=== PATIENT | female | born 1980 | race Two or more races ===

== ENCOUNTER 2023-01-14 22:05 | Inpatient (IN) | payer MEDICAID ==
[~2023-01-14] VITALS: Ht 157.5 cm; Wt 63.5 kg
--- NOTE | 2023-01-15 00:07 | NUR ---
Dr. Carroll at bedside for MSE.
[2023-01-15 00:27] LABS: *BILIRUBIN,URIN NEGATIVE (NEGATIVE); *BLOOD, URINE 2+ (NEGATIVE); *CLARITY,URINE CLEAR (CLEAR); *COLOR,URINE YELLOW (YELLOW); *KETONES,URINE NEGATIVE (NEGATIVE); *UROBILINOGEN,URINE 0.2 E.U./dl (NORMAL); LEUKOCYTE ESTERASE ,URINE NEGATIVE (NEGATIVE); NITRITE, URINE NEGATIVE (NEGATIVE); UGLUCOSE NEGATIVE (NEGATIVE)
[2023-01-15 00:37] LABS: HEMATOCRIT 39.3 % (31.2-41.9); MEAN CORPUSCULAR VOLUME 89.5 fL (75.5-95.3); PLATELET COUNT (AUTO) 89 K/uL (179-408)
[2023-01-15 00:43] LABS: CREATININE 0.6 mg/dL (0.6-1.3); POTASSIUM 3.5 mmol/L (3.5-5.1)
[2023-01-15 00:49] LABS: BILIRUBIN,DIRECT 0.1 mg/dL (0.0-0.2); BILIRUBIN,TOTAL 0.1 mg/dL (0.2-1.0); TOTAL PROTEIN, SERUM 8.1 g/dL (6.4-8.2)
[2023-01-15 01:06] LABS: BACTERIA,URINE NONE SEEN /HPF (NONE SEEN); SQUAMOUS EPITHELIAL CELL,UR FEW /HPF (NONE SEEN); WBC,URINE NONE SEEN /HPF (0-3)
[2023-01-15 01:20] LABS: LYMPHOCYTES % (MANUAL) 29 % (20-40); MONOCYTES % (MANUAL) 3 % (2-10); NEUTROPHILS % (MANUAL) 68 % (42-75)
--- NOTE | 2023-01-15 01:23 | NUR ---
Ultrasound at bedside.
--- NOTE | 2023-01-15 01:44 | NUR ---
[employer] Handler chapperoned by Joelle DYER.
--- NOTE | 2023-01-15 01:50 | NUR ---
Dr Carroll spoke with Meghana Elliott for OBGYN consult.
--- NOTE | 2023-01-15 01:55 | NUR ---
Dr. Carroll on panel call with Radha Espinosa NP.
[2023-01-15] MEDS ORDERED: REMEDY ESSENTIAL ZINC PASTE 113 GM TP PRN (02:00)
[2023-01-15] MEDS ORDERED: MAGNESIUM HYDROXIDE 30 ML LIQUID UDC PO PRN (02:00)
[2023-01-15] MEDS ORDERED: ACETAMINOPHEN 325 MG TABLET PO PRN (02:00)
[2023-01-15] MEDS ORDERED: IV NS 1000 ML 1,000 ML IV PRN (02:00)
[2023-01-15] MEDS ORDERED: ONDANSETRON 4 MG/2 ML VIAL IV PRN (02:00)
--- NOTE | 2023-01-15 02:15 | NUR ---
Consent signed and explained to patient using Claim Manager.
--- NOTE | 2023-01-15 02:22 | NUR ---
Report given to Antonia Soto RN OR.
[2023-01-15] MEDS ORDERED: CEFAZOLIN 1 G VIAL ONE (03:00)
[2023-01-15] MEDS ORDERED: SUCCINYLCHOLINE CHLORIDE 200 MG/10 ML VIAL ONE (03:00)
[2023-01-15] MEDS ORDERED: DEXAMETHASONE SOD PHOSPHATE 4 MG INJ ONE (03:00)
[2023-01-15] MEDS ORDERED: PROPOFOL 200 MG/20 ML BOTTLE ONE (03:00)
[2023-01-15] MEDS ORDERED: ONDANSETRON 4 MG/2 ML VIAL ONE (03:00)
[2023-01-15] MEDS ORDERED: FENTANYL CITRATE 100 MCG/2 ML AMPUL ONE (03:14)
[2023-01-15] MEDS ORDERED: MIDAZOLAM HCL 2 MG/2 ML VIAL ONE (03:15)
[2023-01-15] MEDS ORDERED: OXYTOCIN 10 UNIT/ML VIAL ONE ×2 (03:52→03:53)
[2023-01-15 06:26] LABS: HEMATOCRIT 36.6 % (31.2-41.9); MEAN CORPUSCULAR VOLUME 90.6 fL (75.5-95.3); PLATELET COUNT (AUTO) 86 K/uL (179-408)
[2023-01-15 06:51] VITALS: BP 110/68
--- NOTE | 2023-01-15 07:52 | NUR ---
Patient admitted via OR S/P D7C for vaginal bleeding , gestation 8 weeks.Pt was bleeding for several days. Pt stable Vaginal bleeding Minimal Pitocin drip in fusing Lr infusing at 125/ hr. Site satisfactor. Pt Broussard/C when tolerating PO and Ambulatory
[2023-01-15] MEDS ORDERED: IV LACTATED RINGERS SOLUTION 1,000 ML IV PRN (08:15)
--- NOTE | 2023-01-15 09:00 | NUR ---
AWAKENED FOR BREAKFAST. VERY HUNGRY. VOIDING QS. NO C/O DISCOMFORT AT THIS TIME.
[2023-01-15] MEDS ORDERED: HYDROCODONE/APAP 5-325MG TABLET PO PRN ×2 (10:15)
[2023-01-15 12:00] VITALS: BP 106/63
--- NOTE | 2023-01-15 13:00 | NUR ---
SEEN BY STEFFEN CLAROS. INSTRUCTED THAT SHE WILL BE DISCHARGED TODAY, AND FOLLOW UP WITH DR. SALINAS CARRILLO IN ONE WEEK. PRINTOUT OF DR. NIÑO'S OFFICE NUMBER AND AND LOCATION GIVEN TO PATIENT.
[2023-01-15] MEDS ORDERED: CEPH500T PO (13:45)
[2023-01-15] MEDS ORDERED: HYDR-3972 PO (13:45)
--- NOTE | 2023-01-15 15:00 | NUR ---
SALINE LOCK DC'D. ANGIOCATH REMOVED INTACT. PREPARED FOR DISCHARGE. INSTRUCTIONS GIVEN TO - GURDEEP AND PATIENT.
--- NOTE | 2023-01-15 15:50 | NUR ---
DISCHARGED VIA W/C, ACCOMPANIED BY CHASE JACOBSEN TO IN W/C. IN GOOD SPIRITS.
[2023-01-15 16:06] VITALS: BP 110/67
== END 2023-01-15 15:15 | disposition home or self-care (01) | DRG 560 ==
LOC: ER 22:05 → MEDSURG3 01-15 02:40
PROVIDERS: ADMIT Nurse Practitioner Acute Care; ATTEND Nurse Practitioner Acute Care
PROC: 10D07Z8 Extraction of Products of Conception, Other, Via Natural or Artificial Opening (ICD-10-PCS; principal; 2023-01-15)
DX: O36.4XX0 Maternal care for intrauterine death, not applicable or unspecified (principal); Z37.9 Outcome of delivery, unspecified; D69.6 Thrombocytopenia, unspecified; O08.1 Delayed or excessive hemorrhage following ectopic and molar pregnancy; O99.111 Other diseases of the blood and blood-forming organs and certain disorders involving the immune mechanism complicating pregnancy, first trimester; O99.12 Other diseases of the blood and blood-forming organs and certain disorders involving the immune mechanism complicating childbirth; D72.829 Elevated white blood cell count, unspecified; Z20.822 Contact with and (suspected) exposure to COVID-19; Z3A.08 8 weeks gestation of pregnancy
CPT/HCPCS: 36415; 70030-TC; 76856; 85025; 86850; 86900; 86901; G0378; J0330; J0690; J1100; J2250; J2405; J2590; J3010; J3490

== ENCOUNTER 2023-04-20 22:41 | Emergency (ER) | payer MEDICAID ==
[~2023-04-20] VITALS: Ht 149.9 cm; Wt 63.5 kg
[~2023-04-20 22:41] MED LIST: CEPH500T PO; HYDR-3972 PO
[2023-04-20] MEDS ORDERED: ONDANSETRON ODT 4 MG TAB.RAPDIS ONE (23:25)
[2023-04-20] MEDS ORDERED: HYDROMORPHONE 1 MG/1 ML DISP.SYRIN ONE (23:26)
[2023-04-20] MEDS ORDERED: HYDROMORPHONE 1 MG/1 ML DISP.SYRIN IM ONE (23:30)
[2023-04-20] MEDS ORDERED: ONDANSETRON ODT 4 MG TAB.RAPDIS SL ONE (23:30)
[2023-04-20] MEDS ORDERED: HYDR-3980 PO ×2 (23:51→23:53)
[2023-04-20] MEDS ORDERED: ONDA4TAB5 PO ×2 (23:51→23:53)
[2023-04-21 00:07] VITALS: BP 135/93; O2SAT 97
== END 2023-04-21 00:08 | disposition home or self-care (01) ==
LOC: ER 22:41
DX: S62.613A Displaced fracture of proximal phalanx of left middle finger, initial encounter for closed fracture (principal); Z90.49 Acquired absence of other specified parts of digestive tract; Z79.899 Other long term (current) drug therapy; W20.8XXA Other cause of strike by thrown, projected or falling object, initial encounter; Y93.89 Activity, other specified; Y92.89 Other specified places as the place of occurrence of the external cause; Y99.8 Other external cause status
CPT/HCPCS: 29130; 73130; 96372; 99283; J1170; A4663; Q0162

== ENCOUNTER 2023-05-06 19:20 | Inpatient (IN) | payer MEDICAID ==
[~2023-05-06] VITALS: Ht 152 cm; Wt 71.7 kg
[~2023-05-06 19:20] MED LIST changes: +HYDR-3980 PO; +ONDA4TAB5 PO
[2023-05-06] MEDS ORDERED: ONDANSETRON 4 MG/2 ML VIAL IV ONE (20:00)
[2023-05-06] MEDS ORDERED: FAMOTIDINE. 20 MG/2 ML VIAL IV ONE (20:00)
[2023-05-06] MEDS ORDERED: IV NORMAL SALINE 1000 ML BAG IV ONE (20:00)
[2023-05-06 20:22] LABS: BASOPHILS # (AUTO) 0.1 K/UL (0.0-0.2); BASOPHILS % (AUTO) 0.4 % (0.0-2.0); EOSINOPHILS # (AUTO) 0.1 K/uL (0.0-0.7); EOSINOPHILS % (AUTO) 0.4 % (0.0-7.0); HEMOGLOBIN 13.8 g/dL (10.9-14.3); LYMPHOCYTES % (AUTO) 18.2 % (20.5-51.5); MEAN CORPUSCULAR HEMOGLOBIN 29.7 uug (24.7-32.8); MEAN CORPUSCULAR HGB CONC 33 g/dL (32.3-35.6); MEAN CORPUSCULAR VOLUME 90.5 fL (75.5-95.3); MONOCYTES % (AUTO) 6.1 % (0.0-11.0); NEUTROPHILS # (AUTO) 12.2 K/uL (1.8-8.9); NEUTROPHILS % (AUTO) 74.9 % (38.5-71.5); PLATELET COUNT (AUTO) 116 K/uL (179-408); RED BLOOD CELL COUNT(AUTO) 4.64 MIL/uL (3.63-4.92); RED CELL DISTRIBUTION WIDTH 13.3 % (12.3-17.7); WHITE BLOOD COUNT (AUTO) 16.3 K/uL (3.8-11.8)
[2023-05-06 20:23] LABS: DIFFERENTIAL COMMENT 1
[2023-05-06 20:42] LABS: BILIRUBIN,DIRECT 0.1 mg/dL (0.0-0.2); BILIRUBIN,TOTAL 0.4 mg/dL (0.2-1.0); CREATININE 0.7 mg/dL (0.6-1.3); POTASSIUM 4.1 mmol/L (3.5-5.1); TOTAL PROTEIN, SERUM 8.2 g/dL (6.4-8.2)
[2023-05-06] MEDS ORDERED: LIDOCAINE VISCUS 2% 15 ML UDC MM ONE (22:30)
[2023-05-06] MEDS ORDERED: MAG HYDROX/AL HYDROX/SIMETH 30 ML LIQUID UDC PO ONE (22:30)
[2023-05-06] MEDS ORDERED: MAG HYDROX/AL HYDROX/SIMETH 30 ML LIQUID UDC ONE (22:54)
[2023-05-06 23:00] LABS: *BILIRUBIN,URIN NEGATIVE (NEGATIVE); *BLOOD, URINE 2+ (NEGATIVE); *CLARITY,URINE CLEAR (CLEAR); *COLOR,URINE YELLOW (YELLOW); *KETONES,URINE NEGATIVE (NEGATIVE); *PROTEIN,URINE TRACE (NEGATIVE); *UROBILINOGEN,URINE 0.2 E.U./dl (NORMAL); LEUKOCYTE ESTERASE ,URINE NEGATIVE (NEGATIVE); NITRITE, URINE NEGATIVE (NEGATIVE); PH,URINE 6.5 (5.0-8.0); UGLUCOSE NEGATIVE (NEGATIVE)
[2023-05-06 23:52] LABS: *URINE HCG, QUAL NEGATIVE (NEGATIVE)
[2023-05-07 00:25] LABS: WBC,URINE 0-3 /HPF (0-3)
[2023-05-07 00:26] LABS: BACTERIA,URINE FEW /HPF (NONE SEEN); SQUAMOUS EPITHELIAL CELL,UR MODERATE /HPF (NONE SEEN)
[2023-05-07] MEDS ORDERED: KETOROLAC TROMETHAMINE 15 MG INJ IVP ONE (00:30)
[2023-05-07] MEDS ORDERED: PANTOPRAZOLE SODIUM IV 40 MG in IV DEXTROSE 5% 100 ML IV ONE (00:30)
[2023-05-07] MEDS ORDERED: KETOROLAC TROMETHAMINE 15 MG INJ ONE (00:34)
[2023-05-07] MEDS ORDERED: PANTOPRAZOLE SODIUM 40 MG VIAL ONE (00:34)
[2023-05-07] MEDS ORDERED: ONDANSETRON 4 MG/2 ML VIAL IV PRN (02:00)
[2023-05-07] MEDS ORDERED: MAGNESIUM HYDROXIDE 30 ML LIQUID UDC PO PRN (02:00)
[2023-05-07] MEDS ORDERED: ACETAMINOPHEN 325 MG TABLET PO PRN (02:00)
[2023-05-07 02:50] VITALS: BP 132/75; TEMP 98.6; O2SAT 99
[2023-05-07 04:00] VITALS: BP 105/55; TEMP 98.3; O2SAT 97
[2023-05-07] MEDS: IV NS 1000 ML 1,000 ML IV PRN ×2 (07:06→23:08)
[2023-05-07] MEDS: ENOXAPARIN SODIUM 40 MG/0.4 ML DISP.SYRIN SQ SCH (08:45)
[2023-05-07] MEDS: PANTOPRAZOLE SODIUM 40 MG VIAL IV SCH (08:45)
[2023-05-07] MEDS ORDERED: MORPHINE SULFATE 4 MG/1 ML DISP.SYRIN IV PRN (10:30)
[2023-05-07 12:00] VITALS: BP 117/76; TEMP 99; O2SAT 97
[2023-05-07 16:00] VITALS: BP 102/59; TEMP 97.7; O2SAT 97
[2023-05-07] MEDS: PIPERACILLIN SODIUM/TAZOBACTAM 3.375 G in IV DEXTROSE 5% 100 ML IV SCH (17:30)
[2023-05-07] MEDS ORDERED: PIPERACILLIN SODIUM/TAZOBACTAM 3.375 G in IV DEXTROSE 5% 50 ML IV SCH (18:00)
[2023-05-07] MEDS ORDERED: PIPERACILLIN SODIUM/TAZOBACTAM 3.375 G in IV DEXTROSE 5% 100 ML IV SCH (22:00)
[2023-05-07 23:38] VITALS: BP 106/57; TEMP 98.2; O2SAT 99
[2023-05-08] MEDS: PIPERACILLIN SODIUM/TAZOBACTAM 3.375 G in IV DEXTROSE 5% 100 ML IV SCH ×3 (00:10→16:06)
[2023-05-08 04:27] VITALS: BP 107/56; TEMP 98.2; O2SAT 99
[2023-05-08 06:53] LABS: BASOPHILS % (AUTO) 0.3 % (0.0-2.0); EOSINOPHILS # (AUTO) 0.2 K/uL (0.0-0.7); HEMATOCRIT 36.4 % (31.2-41.9); HEMOGLOBIN 12.5 g/dL (10.9-14.3); LYMPHOCYTES % (AUTO) 29.1 % (20.5-51.5); MEAN CORPUSCULAR HEMOGLOBIN 30.8 uug (24.7-32.8); MEAN CORPUSCULAR HGB CONC 34 g/dL (32.3-35.6); MEAN CORPUSCULAR VOLUME 90.1 fL (75.5-95.3); MONOCYTES # (AUTO) 0.8 K/uL (0.1-1.30); MONOCYTES % (AUTO) 7.5 % (0.0-11.0); NEUTROPHILS # (AUTO) 6.3 K/uL (1.8-8.9); NEUTROPHILS % (AUTO) 61.1 % (38.5-71.5); PLATELET COUNT (AUTO) 112 K/uL (179-408); RED BLOOD CELL COUNT(AUTO) 4.04 MIL/uL (3.63-4.92); RED CELL DISTRIBUTION WIDTH 13.3 % (12.3-17.7); WHITE BLOOD COUNT (AUTO) 10.3 K/uL (3.8-11.8)
[2023-05-08 07:08] LABS: DIFFERENTIAL COMMENT 1
[2023-05-08 07:19] LABS: CALCIUM 7.8 mg/dL (8.5-10.1); CREATININE 0.6 mg/dL (0.6-1.3); PHOSPHOROUS 2.6 mg/dL (2.5-4.9); POTASSIUM 3.5 mmol/L (3.5-5.1)
[2023-05-08] MEDS: PANTOPRAZOLE SODIUM 40 MG VIAL IV SCH (08:16)
[2023-05-08] MEDS: ENOXAPARIN SODIUM 40 MG/0.4 ML DISP.SYRIN SQ SCH (08:27)
[2023-05-08 11:49] VITALS: BP 107/55; TEMP 98.4; O2SAT 95
[2023-05-08] MEDS ORDERED: AMOX-430 PO (13:30)
[2023-05-08] MEDS ORDERED: HYDR-3972 PO (13:30)
[2023-05-08 16:00] VITALS: BP 122/75; TEMP 98.1; O2SAT 97
[2023-05-09] MEDS ORDERED: PANTOPRAZOLE SODIUM 40 MG TABLET.DR PO SCH (07:00)
== END 2023-05-08 18:40 | disposition home or self-care (01) | DRG 244 ==
LOC: ER 19:32 → MEDSURG3 05-07 02:25
PROVIDERS: ADMIT Nurse Practitioner Acute Care; ATTEND Nurse Practitioner Acute Care
DX: K57.32 Diverticulitis of large intestine without perforation or abscess without bleeding (principal); K76.0 Fatty (change of) liver, not elsewhere classified; E78.5 Hyperlipidemia, unspecified; Z90.49 Acquired absence of other specified parts of digestive tract; Z98.891 History of uterine scar from previous surgery; Z86.19 Personal history of other infectious and parasitic diseases; R79.89 Other specified abnormal findings of blood chemistry
CPT/HCPCS: 36415; 74018; 76705; 83690; 83735; 84100; 84703; 85025; 85730; 86677; A4663; C9113; G0378; J1650; J1885; J2270; J2405; J2543; J3490; J7040

== ENCOUNTER 2023-07-26 17:11 | Emergency (ER) | payer MEDICAID ==
[~2023-07-26] VITALS: Ht 154.9 cm; Wt 74.8 kg
[~2023-07-26 17:11] MED LIST changes: +AMOX-430 PO; -CEPH500T PO; -HYDR-3980 PO; -ONDA4TAB5 PO
[2023-07-26 18:16] LABS: BASOPHILS # (AUTO) 0.3 K/UL (0.0-0.2); EOSINOPHILS % (AUTO) 0.2 % (0.0-7.0); HEMATOCRIT 41.3 % (31.2-41.9); HEMOGLOBIN 13.7 g/dL (10.9-14.3); LYMPHOCYTES # (AUTO) 2.5 K/uL (0.8-4.8); LYMPHOCYTES % (AUTO) 18.8 % (20.5-51.5); MEAN CORPUSCULAR HEMOGLOBIN 30.1 uug (24.7-32.8); MEAN CORPUSCULAR HGB CONC 33 g/dL (32.3-35.6); MEAN CORPUSCULAR VOLUME 90.6 fL (75.5-95.3); MONOCYTES # (AUTO) 0.8 K/uL (0.1-1.30); MONOCYTES % (AUTO) 6.1 % (0.0-11.0); NEUTROPHILS # (AUTO) 9.7 K/uL (1.8-8.9); NEUTROPHILS % (AUTO) 72.9 % (38.5-71.5); PLATELET COUNT (AUTO) 117 K/uL (179-408); RED BLOOD CELL COUNT(AUTO) 4.56 MIL/uL (3.63-4.92); RED CELL DISTRIBUTION WIDTH 13.5 % (12.3-17.7); WHITE BLOOD COUNT (AUTO) 13.2 K/uL (3.8-11.8)
[2023-07-26 18:18] LABS: *BILIRUBIN,URIN NEGATIVE (NEGATIVE); *BLOOD, URINE 2+ (NEGATIVE); *CLARITY,URINE CLEAR (CLEAR); *COLOR,URINE YELLOW (YELLOW); *KETONES,URINE NEGATIVE (NEGATIVE); *PROTEIN,URINE 2+ (NEGATIVE); *UROBILINOGEN,URINE 0.2 E.U./dl (NORMAL); LEUKOCYTE ESTERASE ,URINE NEGATIVE (NEGATIVE); NITRITE, URINE NEGATIVE (NEGATIVE); UGLUCOSE NEGATIVE (NEGATIVE)
[2023-07-26 18:23] LABS: BACTERIA,URINE FEW /HPF (NONE SEEN); RBC,URINE 20-50 /HPF (0-3); SQUAMOUS EPITHELIAL CELL,UR FEW /HPF (NONE SEEN); WBC,URINE 0-3 /HPF (0-3)
[2023-07-26 18:24] LABS: CALCIUM 9.3 mg/dL (8.5-10.1); CARBON DIOXIDE 27 mmol/L (21-32); CHLORIDE 99 mmol/L (98-107); CREATININE 0.6 mg/dL (0.6-1.3); DIFFERENTIAL COMMENT 1; GLUCOSE 97 mg/dL (74-106); POTASSIUM 3.9 mmol/L (3.5-5.1); SODIUM SERUM 136 mmol/L (136-145); UREA NITROGEN, BLOOD 10 mg/dL (7-18)
[2023-07-26 18:24] LABS: *URINE HCG, QUAL POSITIVE (NEGATIVE)
[2023-07-26] MEDS ORDERED: AMOX-427 PO (18:29)
[2023-07-26 18:30] LABS: ALBUMIN 3.7 g/dL (3.4-5.0); ALKALINE PHOSPHATASE 84 U/L (50-136); ASPARTATE AMINOTRANSFERASE 11 U/L (15-37); BILIRUBIN,TOTAL 0.3 mg/dL (0.2-1.0); LIPASE 42 U/L (16-77); TOTAL PROTEIN, SERUM 8.1 g/dL (6.4-8.2)
[2023-07-26 18:33] LABS: BILIRUBIN,DIRECT < 0.1 mg/dL (0.0-0.2)
[2023-07-26 18:41] LABS: ALANINE AMINOTRANSFERASE < 6 U/L (14-59)
[2023-07-26] MEDS ORDERED: CHOL500062 PO (21:51)
[2023-07-26] MEDS ORDERED: ACET1TAB23 PO (21:51)
[2023-07-26 22:21] VITALS: BP 121/84; TEMP 98.5; O2SAT 99
== END 2023-07-26 22:21 | disposition home or self-care (01) ==
LOC: ER 17:15
DX: O26.891 Other specified pregnancy related conditions, first trimester (principal); R10.2 Pelvic and perineal pain; R10.30 Lower abdominal pain, unspecified; Z90.49 Acquired absence of other specified parts of digestive tract; Z79.2 Long term (current) use of antibiotics; Z79.899 Other long term (current) drug therapy; Z3A.01 Less than 8 weeks gestation of pregnancy
CPT/HCPCS: 36415; 76700; 76856; 83690; 84703; 85025; A4606; A4663

== ENCOUNTER 2024-01-28 20:24 | Emergency (ER) | payer MEDICAID, OTHER ==
[~2024-01-28] VITALS: Ht 154.9 cm; Wt 74.8 kg
[~2024-01-28 20:24] MED LIST changes: +ACET1TAB23 PO; -AMOX-430 PO; +CHOL500062 PO; -HYDR-3972 PO
[2024-01-28 20:34] VITALS: O2SAT 95
[2024-01-28] MEDS ORDERED: FLUORESCEIN SODIUM 1 MG STRIP ONE (20:45)
[2024-01-28] MEDS ORDERED: TETRACAINE HCL 0.5% OPHT DROP 2 ML BOTTLE ONE (20:46)
[2024-01-28] MEDS: FLUORESCEIN SODIUM 1 MG STRIP OP ONE (20:58)
[2024-01-28] MEDS: TETRACAINE HCL 0.5% OPHT DROP 2 ML BOTTLE OP ONE (20:58)
[2024-01-28] MEDS ORDERED: TOBR5DRO46 EACHEYE (21:02)
== END 2024-01-28 21:10 | disposition home or self-care (01) ==
LOC: ER 20:27
DX: H11.89 Other specified disorders of conjunctiva (principal); F17.200 Nicotine dependence, unspecified, uncomplicated; Z90.49 Acquired absence of other specified parts of digestive tract; Z79.899 Other long term (current) drug therapy; Z60.2 Problems related to living alone
CPT/HCPCS: A4606; A4663

== ENCOUNTER 2024-02-23 12:43 | Emergency (ER) | payer OTHER ==
[~2024-02-23] VITALS: Ht 154.9 cm; Wt 74.8 kg
[~2024-02-23 12:43] MED LIST changes: +TOBR5DRO46 EACHEYE
[2024-02-23 13:43] LABS: *BILIRUBIN,URIN NEGATIVE (NEGATIVE); *BLOOD, URINE 3+ (NEGATIVE); *CLARITY,URINE CLEAR (CLEAR); *COLOR,URINE DARK YELLOW (YELLOW); *KETONES,URINE NEGATIVE (NEGATIVE); *PROTEIN,URINE 2+ (NEGATIVE); *UROBILINOGEN,URINE 0.2 E.U./dl (NORMAL); LEUKOCYTE ESTERASE ,URINE NEGATIVE (NEGATIVE); NITRITE, URINE NEGATIVE (NEGATIVE); UGLUCOSE NEGATIVE (NEGATIVE)
[2024-02-23 13:45] LABS: *URINE HCG, QUAL NEGATIVE (NEGATIVE)
[2024-02-23 13:46] LABS: BASOPHILS # (AUTO) 0.1 K/UL (0.0-0.2); BASOPHILS % (AUTO) 0.8 % (0.0-2.0); EOSINOPHILS # (AUTO) 0.1 K/uL (0.0-0.7); EOSINOPHILS % (AUTO) 0.3 % (0.0-7.0); HEMATOCRIT 41.4 % (31.2-41.9); HEMOGLOBIN 13.6 g/dL (10.9-14.3); LYMPHOCYTES # (AUTO) 2.5 K/uL (0.8-4.8); LYMPHOCYTES % (AUTO) 15.3 % (20.5-51.5); MEAN CORPUSCULAR HEMOGLOBIN 29.5 uug (24.7-32.8); MEAN CORPUSCULAR HGB CONC 33 g/dL (32.3-35.6); MONOCYTES # (AUTO) 0.8 K/uL (0.1-1.30); MONOCYTES % (AUTO) 4.8 % (0.0-11.0); NEUTROPHILS # (AUTO) 12.7 K/uL (1.8-8.9); NEUTROPHILS % (AUTO) 78.8 % (38.5-71.5); PLATELET COUNT (AUTO) 154 K/uL (179-408); RED CELL DISTRIBUTION WIDTH 13.3 % (12.3-17.7); WHITE BLOOD COUNT (AUTO) 16.2 K/uL (3.8-11.8)
[2024-02-23 13:50] LABS: DIFFERENTIAL COMMENT 1
[2024-02-23 13:53] LABS: BACTERIA,URINE FEW /HPF (NONE SEEN); WBC,URINE 0-3 /HPF (0-3)
[2024-02-23 13:54] LABS: SQUAMOUS EPITHELIAL CELL,UR MODERATE /HPF (NONE SEEN)
[2024-02-23 13:56] LABS: CALCIUM 9.5 mg/dL (8.5-10.1); CREATININE 0.6 mg/dL (0.6-1.3); POTASSIUM 4.1 mmol/L (3.5-5.1)
[2024-02-23 14:01] LABS: BILIRUBIN,TOTAL 0.6 mg/dL (0.2-1.0); TOTAL PROTEIN, SERUM 8.3 g/dL (6.4-8.2)
[2024-02-23 14:28] LABS: ANISOCYTOSIS 1+; BAND % (MANUAL) 4 % (0-10); LYMPHOCYTES % (MANUAL) 15 % (20-40); MONOCYTES % (MANUAL) 4 % (2-10); NEUTROPHILS % (MANUAL) 77 % (42-75); PLATELET ESTIMATE ADEQUATE
[2024-02-23] MEDS: PIPERACILLIN SODIUM/TAZOBACTAM 3.375 G in IV DEXTROSE 5% 50 ML IV ONE (16:00)
[2024-02-23] MEDS ORDERED: ONDA4TAB5 PO (16:29)
[2024-02-23] MEDS ORDERED: AMOX-430 PO (16:29)
[2024-02-23] MEDS ORDERED: HYDR-3980 PO (16:29)
[2024-02-23] MEDS ORDERED: IV NORMAL SALINE 500 ML BAG IV ONE (16:45)
[2024-02-23 17:08] VITALS: BP 121/67; O2SAT 97
== END 2024-02-23 16:30 | disposition home or self-care (01) ==
LOC: ER 12:43
DX: K57.32 Diverticulitis of large intestine without perforation or abscess without bleeding (principal); F17.200 Nicotine dependence, unspecified, uncomplicated; R10.2 Pelvic and perineal pain; Z90.49 Acquired absence of other specified parts of digestive tract; Z79.899 Other long term (current) drug therapy
CPT/HCPCS: 99285; 74176; 96365; 80053; 81001; 84703; 83690; 85025; 36415; 85007; J2543; 70030-TC; A4606; A4663

== ENCOUNTER 2024-04-04 12:21 | Emergency (ER) | payer OTHER ==
[~2024-04-04] VITALS: Ht 160 cm; Wt 76.2 kg
[~2024-04-04 12:21] MED LIST changes: +AMOX-430 PO; +HYDR-3980 PO; +ONDA4TAB5 PO
[2024-04-04] MEDS ORDERED: AMOX-427 PO (14:20)
[2024-04-04 14:43] VITALS: BP 129/88; O2SAT 98
== END 2024-04-04 14:46 | disposition home or self-care (01) ==
LOC: ER 12:21
DX: J02.0 Streptococcal pharyngitis (principal); F17.200 Nicotine dependence, unspecified, uncomplicated; Z90.49 Acquired absence of other specified parts of digestive tract; Z79.899 Other long term (current) drug therapy; Z79.891 Long term (current) use of opiate analgesic; Z60.2 Problems related to living alone
CPT/HCPCS: 86403; A4606; A4663